=== PATIENT | male | born 1970 | race Caucasian/White ===

== ENCOUNTER 2018-06-10 12:08 | Emergency (ER) | payer BC, OTHER ==
[~2018-06-10] VITALS: Ht 180.3 cm; Wt 90.7 kg
[2018-06-10] MEDS ORDERED: fentaNYL PF VIAL 100 MCG/2 ML VIAL IV PRN (12:30)
[2018-06-10] MEDS ORDERED: PROPOFOL 100 ML IV PRN (12:30)
[2018-06-10] MEDS ORDERED: MORPHINE SULFATE 2 MG/ML VIAL. IV PRN (12:30)
[2018-06-10 12:36] LABS: BILIRUBIN,URINE SMALL (NEG); CLARITY,URINE CLEAR; COLOR,URINE AMBER; NITRITE,URINE NEGATIVE (NEG); PROTEIN,URINE >=300 mg/dL (NEG-TRACE)
[2018-06-10 12:36] LABS: BASE EXCESS COOX -2 mmol/L (-3-3); CORRECTED PCO2 COOX 39 mmHg; CORRECTED PH COOX 7.39; CORRECTED PO2 COOX 286 mmHg; HCO3 COOX 24 mmol/L (21-28); METHEMOGLOBIN 0.6 % (0.0-1.9); OXYHEMOGLOBIN 98.2 %; SAT O2 COOX 99 % (92-99)
[2018-06-10 12:38] LABS: PCO2 COOX 44 mmHg (35-46); PO2 COOX 298 mmHg (75-108)
[2018-06-10 12:38] LABS: BASO % 2 % (0-3); EOS % 0 % (0-3); HEMATOCRIT 43.2 % (39.0-53.0); HEMOGLOBIN 14.4 g/dL (13.0-17.5); LYMPH # 0.4 x10^3/uL (1.0-4.8); LYMPH % 16 % (24-48); MEAN CORPUSCULAR HEMOGLOBIN 30 pg (25-35); MEAN CORPUSCULAR HGB CONC 33 g/dL (31-37); MEAN CORPUSCULAR VOLUME 91 fL (79-100); MONO # 0.2 x10^3/uL (0.0-1.1); MONO % 7 % (0-9); NEUT # 1.8 x10^3uL (1.8-7.7); NEUT % 75 % (31-73); PLATELET COUNT 43 x10^3/uL (140-400); RED BLOOD COUNT 4.74 x10^6/uL (4.30-5.70); RED CELL DISTRIBUTION WIDTH 17.9 % (11.5-14.5); WHITE BLOOD COUNT 2.4 x10^3/uL (4.0-11.0)
--- NOTE | 2018-06-10 12:39 | PHYS DOC ---
Past Medical History Past Medical History: No Pertinent History, Other Past Surgical History: No Surgical History, Other Alcohol Use: Heavy Drug Use: None Adult General Chief Complaint Chief Complaint: ALTERED MENTAL STATUS HPI HPI 47-year-old male presenting to the emergency department today by EMS. Patient is known EMS to be a chronic alcoholic. They were called to the scene and he was unresponsive. The patient was mildly bradycardic thus they gave the patient atropine which brought his heart rate from 50 to 115. They placed a nasal trumpet in and bring him in for evaluation. No report of suicide attempt. No report of recent trauma though he does show an abrasion to his left taoist. They gave him Narcan without any changes in mental status. Past medical history, surgical history, social history, allergies and ROS were unable to be obtained because the patient is currently comatose and nonresponsive. All other review of systems is negative unless otherwise noted in history of present illness. ED course: 47-year-old male presenting the emergency department today unresponsive. On arrival we can see abrasions to his left taoist. Otherwise he does not respond to painful stimuli with a GCS of 3. He does smell of alcohol. Patient was not protecting his airway thus we performed an endotracheal intubation. See procedure note. No complications. Head CT ordered along with blood glucose which was normal per the paramedics. Also ordered CBC with EtOH and urine drugs of abuse. CBC shows white count of 2.4. Hemoglobin normal. Platelet count is 43,000. Chemistry panel shows low potassium. Otherwise chemistry panel shows mild elevation in LFTs and bilirubin likely related to the patient's alcoholism. Patient's lipase is mildly elevated as well. Urinalysis shows blood but not strongly suggestive of infection. No bacteria. EtOH level was 425. Acetaminophen and salicylates are within normal limits. Chest x-ray shows ET tube in place. Head CT shows very large extra-axial hemorrhage which is multifocal. I saw this prior to the radiologist calling me and had paged our neurosurgeon. Ca his nurse practitioner called back for Dr. rodríguez. Dr. rodríguez has started a case and will be unable to care for the patient at this time and thus recommends transfer to . I spoke with the transfer center. Dr. Alvarez accepts the patient for admission. The patient was then transferred emergently to the [facility] for neurosurgical evaluation and treatment. Review of Systems Review of Systems SEE ABOVE. Current Medications Current Medications Current Medications Medications (Trade) Dose Ordered Sig/Ben Start Time Stop Time Status Last Admin Dose Admin Chlorhexidine Gluconate (Peridex) 15 ml BID 06/10/18 21:00 Fentanyl Citrate (Fentanyl 2ml Vial) 25 mcg PRN Q1HR PRN 06/10/18 12:30 Morphine Sulfate (Morphine Sulfate) 2 mg PRN Q1HR PRN 06/10/18 12:30 Propofol 100 ml @ 0 mls/hr CONT PRN 06/10/18 12:30 Allergies Allergies Allergies Coded Allergies Type Severity Reaction Last Updated Verified Unable to Assess 10/06/15 No Physical Exam Physical Exam SEE ABOVE Constitutional: Well developed, well nourished, unresponsive HENT: Normocephalic, bilateral external ears normal, oropharynx moist, no oral exudates, nose normal. [] He has a few small abrasions to the left taoist but no depressed skull fractures Eyes: PERRLA, EOMI, conjunctiva normal, no discharge. [] Neck: no tenderness, supple, no stridor. [] Cardiovascular:Heart rate regular rhythm, no murmur [] Lungs & Thorax: Bilateral breath sounds clear to auscultation [] Abdomen: Bowel sounds normal, soft, no tenderness, no masses, no pulsatile masses. [] Skin: Warm, dry, no erythema, no rash. [] Back: No tenderness, no CVA tenderness. [] Extremities: No tenderness, no cyanosis, no clubbing, ROM intact, no edema. [] Neurologic: unresponsive gcs 3. pupils equal and reactive. cannot assess CN, motor or sensory. Psychologic: unable to assess. Current Patient Data Vital Signs Vital Signs Date Time Temp Pulse Resp B/P (MAP) Pulse Ox O2 Delivery O2 Flow Rate FiO2 06/10/18 13:26 98 Ventilator 06/10/18 13:26 84 18 06/10/18 12:11 93.5 149/91 (110) 15.0 93.5 Lab Values Laboratory Tests Test 06/10/18 12:15 06/10/18 12:22 06/10/18 12:32 White Blood Count 2.4 x10^3/uL (4.0-11.0) L Red Blood Count 4.74 x10^6/uL (4.30-5.70) Hemoglobin 14.4 g/dL (13.0-17.5) Hematocrit 43.2 % (39.0-53.0) Mean Corpuscular Volume 91 fL (79-100) Mean Corpuscular Hemoglobin 30 pg (25-35) Mean Corpuscular Hemoglobin Concent 33 g/dL (31-37) Red Cell Distribution Width 17.9 % (11.5-14.5) H Platelet Count 43 x10^3/uL (140-400) L Neutrophils (%) (Auto) 75 % (31-73) H Lymphocytes (%) (Auto) 16 % (24-48) L Monocytes (%) (Auto) 7 % (0-9) Eosinophils (%) (Auto) 0 % (0-3) Basophils (%) (Auto) 2 % (0-3) Neutrophils # (Auto) 1.8 x10^3uL (1.8-7.7) Lymphocytes # (Auto) 0.4 x10^3/uL (1.0-4.8) L Monocytes # (Auto) 0.2 x10^3/uL (0.0-1.1) Eosinophils # (Auto) 0.0 x10^3/uL (0.0-0.7) Basophils # (Auto) 0.0 x10^3/uL (0.0-0.2) Platelet Estimate Decreased (ADEQUATE) Anisocytosis Slight Urine Collection Type U cath Urine Color Bailey Urine Clarity Clear Urine pH 6.0 Urine Specific [place] 1.025 Urine Protein >=300 mg/dL (NEG-TRACE) Urine Glucose (UA) Negative mg/dL (NEG) Urine Ketones (Stick) >=80 mg/dL (NEG) Urine Blood Large (NEG) Urine Nitrite Negative (NEG) Urine Bilirubin Small (NEG) Urine Urobilinogen Dipstick 1.0 mg/dL (0.2 mg/dL) Urine Leukocyte Esterase Negative (NEG) Urine RBC 20-40 /HPF (0-2) Urine WBC 0 /HPF (0-4) Urine Bacteria 0 /HPF (0-FEW) Urine Hyaline Casts Many /HPF Urine Mucus Marked /LPF Sodium Level 145 mmol/L (136-145) Potassium Level 2.9 mmol/L (3.5-5.1) *L Chloride Level 99 mmol/L (98-107) Carbon Dioxide Level 28 mmol/L (21-32) Anion Gap 18 (6-14) H Blood Urea Nitrogen 7 mg/dL (8-26) L Creatinine 0.7 mg/dL (0.7-1.3) Estimated GFR (Cockcroft-Gault) 119.9 BUN/Creatinine Ratio 10 (6-20) Glucose Level 111 mg/dL (70-99) H Calcium Level 8.4 mg/dL (8.5-10.1) L Total Bilirubin 1.3 mg/dL (0.2-1.0) H Aspartate Amino Transferase (AST) 688 U/L (15-37) H Alanine Aminotransferase (ALT) 359 U/L (16-63) H Alkaline Phosphatase 109 U/L (46-116) Total Protein 7.4 g/dL (6.4-8.2) Albumin 3.8 g/dL (3.4-5.0) Albumin/Globulin Ratio 1.1 (1.0-1.7) Lipase 961 U/L (73-393) H Salicylates Level < 2.8 mg/dL (2.8-20.0) L Salicylate Last Dose Date Unknown Salicylate Last Dose Time Unknown Urine Opiates Screen Neg (NEG) Urine Methadone Screen Neg (NEG) Acetaminophen Level < 2 mcg/ml (10-30) L Acetaminophen Last Dose Date Unknown Acetaminophen Last Dose Time Unknown Urine Barbiturates Neg (NEG) Urine Phencyclidine Screen Neg (NEG) Urine Amphetamine/Methamphetamine Neg (NEG) Urine Benzodiazepines Screen Neg (NEG) Urine Cocaine Screen Neg (NEG) Urine Cannabinoids Screen Neg (NEG) Ethyl Alcohol Level 425 mg/dL (0-10) *H Urine Ethyl Alcohol Pos (NEG) O2 Saturation 99 % (92-99) Arterial Blood pH 7.35 (7.35-7.45) Arterial Blood pH (Temp corrected) 7.39 Arterial Blood pCO2 at Patient Temp 44 mmHg (35-46) Arterial Blood pCO2 (Temp correct) 39 mmHg Arterial Blood pO2 at Patient Temp 298 mmHg (75-108) H Arterial Blood pO2 (Temp corrected) 286 mmHg Arterial Blood HCO3 24 mmol/L (21-28) Arterial Blood Base Excess -2 mmol/L (-3-3) Oxyhemoglobin 98.2 % Methemoglobin 0.6 % (0.0-1.9) Carbon Monoxide, Quantitative 0.3 % (0.0-1.9) FiO2 60 Glucose (Fingerstick) 97 mg/dL (70-99) Laboratory Tests 06/10/18 12:15 Laboratory Tests 06/10/18 12:15 EKG EKG [] Radiology/Procedures Radiology/Procedures [] Course & Med Decision Making Course & Med Decision Making Pertinent Labs and Imaging studies reviewed. (See chart for details) [] Dragon Disclaimer Dragon Disclaimer This electronic medical record was generated, in whole or in part, using a voice recognition dictation system. Departure Departure Impression: Primary Impression: Acute alcohol intoxication Additional Impression: Subdural hemorrhage following injury without open intracranial wound and with loss of consciousness lasting less than 24 hours Disposition: TRANSFER [facility] Condition: GRAVE Referrals: UNKNOWN PCP NAME (PCP) Intubation Procedure Intubation Procedure Intub Indication: Respiratory failure Consent: Unable to give consent due to emergent nature. Medications Used: see nursing note Procedure: The patient was placed in the appropriate position. Intubation was performed using VL with 7.5 Ett endotracheal tube. secured at 24 at the teeth. Initial confirmation of placement included bilateral breath sounds, tube fogging, adequate chest rise, adequate pulse oximetry reading. A chest x- ray to verify correct placement of the tube showed appropriate tube position. The patient tolerated the procedure well. Complications: none. Critical Care Time Critical care time spent was 45 minutes exclusive of procedures. Time was spent evaluating the patient, ordering the administration of medications, reevaluating the patient, discussing with the admitting provider and documenting. Problem Qualifiers LUISA RODRIGUEZ MD Jun 10, 2018 12:39
[2018-06-10 12:43] LABS: BARBITURATES NEG (NEG); BENZODIAZEPINES NEG (NEG); CANNABINOIDS NEG (NEG); COCAINE NEG (NEG); METHADONE NEG (NEG); OPIATES NEG (NEG); PHENCYCLIDINE NEG (NEG)
[2018-06-10 12:45] LABS: AMPHETAMINE/METHAMPHETAMINE NEG (NEG)
[2018-06-10 12:51] LABS: ALBUMIN 3.8 g/dL (3.4-5.0); ALBUMIN/GLOBULIN RATIO 1.1 (1.0-1.7); CALCIUM 8.4 mg/dL (8.5-10.1); CREATININE 0.7 mg/dL (0.7-1.3); GFR 119.9; TOTAL BILIRUBIN 1.3 mg/dL (0.2-1.0); TOTAL PROTEIN 7.4 g/dL (6.4-8.2)
[2018-06-10 12:53] LABS: BACTERIA,URINE 0 /HPF (0-FEW); RBC,URINE 20-40 /HPF (0-2); WBC,URINE 0 /HPF (0-4)
[2018-06-10 12:54] LABS: HYALINE CASTS, URINE MANY /HPF
[2018-06-10 12:55] LABS: POTASSIUM 2.9 mmol/L (3.5-5.1)
[2018-06-10 13:05] LABS: ACETAMIN < 2 mcg/ml (10-30); SALIC < 2.8 mg/dL (2.8-20.0)
--- NOTE | 2018-06-10 13:08 | RAD ---
EXAM: CHEST 1 VIEW History: ET tube placement COMPARISON: None available. TECHNIQUE: Single portable radiograph of the chest FINDINGS: The ET tube is identified in the trachea at the level of the clavicles. The feeding tube is seen below the level of the diaphragm. The tip is not included on the image. Mild cardiomegaly. Minimal prominent appearing bilateral interstitial lung markings. IMPRESSION: 1. Minimal prominent appearing bilateral interstitial lung markings likely congestive changes. 2. ET tube, feeding tube in place. Electronically signed by: Jaylan Helton MD (06/10/2018 1:05 PM) [id number]
[2018-06-10 13:24] LABS: ANISOCYTOSIS SLIGHT; PLT ESTIMATE DECREASED (ADEQUATE)
[2018-06-10 13:26] VITALS: BP 132/96
--- NOTE | 2018-06-10 13:37 | CONS ---
DATE OF CONSULTATION: ATTENDING PHYSICIAN: Dr. Yadav. REASON FOR CONSULTATION: Respiratory failure, acute encephalopathy. HISTORY OF PRESENT ILLNESS: The patient is a 47-year-old who has a history of posttraumatic stress disorder. He is a chronic alcoholic, but he was brought into the [facility] after EMS was called at the scene when he was found to be unresponsive. He had a bruise on his left head and above the eyebrow. He was mildly bradycardic and received a dose of atropine, which raised his heart rate from 50 to 115. He was brought in the Emergency Room, he was not responsive and as a result, he was intubated. So far, chest x-ray post-intubation shows no definite infiltrates. His urine drug screen was positive for higher level of alcohol. His ABG showed a pH of 7.35, pCO2 of 44 and pO2 of 298 on 60% oxygen. The ex- and other family members were there. They say that the patient usually self-medicates. He has no significant history of tobacco use. However, he has heavy alcohol abuse. PAST MEDICAL HISTORY: Significant for heavy alcohol consumption and abuse. PAST SURGICAL HISTORY: No recent surgery. ALLERGIES: Unable to obtain. MEDICATIONS: Given in the ER were reviewed. REVIEW OF SYSTEMS: Unable to obtain from the patient. SOCIAL HISTORY: Heavy alcohol abuse. PHYSICAL EXAMINATION: VITAL SIGNS: His core body temperature was 93.5. His pupils were fixed and dilated. Blood pressure 149/91, pulse ox 99% on 35% FiO2. HEENT: Pupils are fixed and dilated. NECK: Supple. LUNGS: Clear. CARDIOVASCULAR: Regular rate. ABDOMEN: Soft. EXTREMITIES: Some bruise in the right inner thigh. LABORATORY DATA: Reviewed. Urine drug screen as discussed and ABGs as discussed in my history of present illness. BUN and creatinine is 7 and 0.7. Potassium 2.9. AST, ALT are elevated. White cell count 2.4, hemoglobin 14.4 and platelets are 43. IMPRESSION: 1. Acute respiratory failure likely secondary to acute toxic encephalopathy from alcohol intoxication. Need to rule out any subdural hematoma.( FIXED AND DILATED PUPILS) 2. Heavy history of alcohol abuse. Now comes in with intoxication. 3. Need to rule out any anoxic encephalopathy. 4. Hypokalemia related to alcoholism. 5. Abnormal liver function tests related to alcoholism. 6. No significant history of tobacco use. 7. Leukopenia, likely related to alcoholic liver disease. RECOMMENDATIONS: 1. Continue at present assist control mode. Follow ABGs and make necessary adjustments. 2. Obtain CT of the head to rule out any subdural bleed. 3. If there is no head bleed, then we will assess for mental status in the next 24-48 hours to make sure there is no anoxic brain injury. 4. Replace potassium. 5. Follow LFTs. 6. Monitor lipase level which was elevated. May need GI consult if it remains elevated. 7. Follow potassium level. 8. DVT and stress ulcer prophylaxis. The patient has thrombocytopenia likely related to alcoholic liver disease. We will do SCDs. Critical care time 35 minutes. Discussed with the ER physician. Discussed with RN and family members. MARION SMITH MD DR: JENNIFFER/marcelina JOB#: [id number] / [id number] MRAANDA
--- NOTE | 2018-06-10 13:49 | RAD ---
CT HEAD WITHOUT CONTRAST 06/10/2018 1:10 PM Indication: FALL, ETOH, UNRESPONSIVE, NO PRIORS Comparison: None available Procedure: Multidetector CT imaging of the head was performed without the administration of contrast. Findings: There is a large right frontal extra-axial hematoma of mixed density. This may represent subarachnoid hemorrhage, subdural hemorrhage, component of both. Mixed density could reflect rapid bleeding or a component of chronic hemorrhage. Blood is seen extending along the bilateral falx cerebri and along the tentorium bilaterally. Severe right to left midline shift with subfalcine herniation is seen. There is obliteration of the suprasellar cistern and near obliteration of the quadrigeminal cistern. Estimated midline shift is approximately 2.5 cm. A component of probable subdural blood extends inferiorly in the temporal regions and along the anterior inferior frontal region/cribriform area. Blood is seen extending into the posterior fossa and surrounding the superior cervical cord. Distribution this could represent extension of subdural blood, however subarachnoid hemorrhage cannot be completely excluded. There is dilatation of the posterior horn of the left lateral ventricle which may rest represent a trapped ventricle. No acute calvarial fracture is identified. IMPRESSION: Very large right frontal extra-axial hemorrhage with multifocal, more mild diffuse extra-axial hemorrhage as described above in detail, resulting in subfalcine herniation and severe right left midline shift. Emergency findings called to the emergency room physician at 1:[address] cervical spine without contrast. 06/10/2018 1:10 PM Indication:FALL, ETOH, UNRESPONSIVE, NO PRIORS Comparison study: None. Technique: Multidetector CT imaging of the cervical spine was obtained without administration of contrast. Findings: The craniocervical junction is intact. The atlantoaxial articulation remains intact. Facet joints are aligned. Vertebral body heights preserved. Degenerative disc space narrowing at C 67 noted. Some neural foraminal narrowing secondary to osteophytosis at the distal spaces may be present bilaterally. No acute bony compromise of the spinal canal appears to be present. Evaluation of prevertebral soft tissues is limited secondary to presence of endotracheal and enteric tube. No gross prevertebral soft tissue thickening is identified. Again noted is blood surrounding the upper cervical cord the appearance of which raises concern for extension of subdural hematoma versus subarachnoid hemorrhage. IMPRESSION: No evidence of acute fracture or alignment abnormality of the cervical spine is identified. CT DOSING PQRS STATEMENT: One or more of the following individualized dose reduction techniques were utilized for this examination: 1. Automated exposure control 2. Adjustment of the mA and/or kV according to patient size 3. Use of iterative reconstruction technique Electronically signed by: Roly Jorge MD (06/10/2018 1:46 PM) [id number]
[2018-06-10] MEDS ORDERED: CHLORHEXIDINE 0.12% 15 ML MOUTHWASH. MM SCH (21:00)
--- NOTE | 2018-06-11 11:51 | EKG ---
[facility] [address] [place] [address] Test Date: 2018-06-10 Test Time: 12:17:20 Pat Name: ELVIS NELSON Department: Room: Gender: M Office Assistant: : 1970 Requested By: LUISA RODRIGUEZ Order Number: [id number] Reading MD: Jose Angel Sosa MD Measurements Intervals [place] Rate: 108 P: -90 NV: 112 QRS: 83 QRSD: 106 T: -28 QT: 364 QTc: 492 Interpretive Statements SINUS TACHYCARDIA COMPLEX(ES) WITH ABERRANT INTRAVENTRICULAR CONDUCTION VENTRICULAR PREMATURE COMPLEX(ES) NON-SPECIFIC ST/T CHANGES Electronically Signed On 06-11-2018 17:25:08 CDT by Jose Angel Sosa MD
== END 2018-06-10 18:17 | disposition short-term general hospital (02) ==
LOC: ER 12:08
DX: S06.5X4A Traumatic subdural hemorrhage with loss of consciousness of 6 hours to 24 hours, initial encounter (principal); F10.229 Alcohol dependence with intoxication, unspecified; Y90.8 Blood alcohol level of 240 mg/100 ml or more; X58.XXXA Exposure to other specified factors, initial encounter; Y93.89 Activity, other specified; Y92.89 Other specified places as the place of occurrence of the external cause; Y99.8 Other external cause status
CPT/HCPCS: 31500; 36415; 36600; 51702; 70450; 71045; 72125; 80053; 80307; 80329; 81001; 82805; 82962; 83690; 85025; 93005; 94002; 99291; G0480; G6039